=== PATIENT | female | born 1940 | race Caucasian/White ===

== ENCOUNTER → 2019-10-11 | Outpatient (CLI) | payer MEDICARE, OTHER ==
[~2019-10-11] MED LIST: ACYC-113 PO; BENZ-17 PO; CEFD300C37 PO; CIPR500S2 PO; CIPR500T87 PO; FLUC100T PO; LISI-167 PO; METF500T PO; OMNIPAQUE 350 MG/ML, 100ML BOTTLE ONE; VORI200T PO
== END | disposition home or self-care (01) ==
LOC: CFH 10:05
PROVIDERS: ATTEND Internal Medicine Infectious Disease
DX: J18.1 Lobar pneumonia, unspecified organism (principal)
CPT/HCPCS: 71260; Q9967

== ENCOUNTER → 2020-01-13 | Outpatient (CLI) | payer MEDICARE, OTHER ==
[~2020-01-13] MED LIST changes: -OMNIPAQUE 350 MG/ML, 100ML BOTTLE ONE; +OMNIPAQUE 350 MG/ML, 75ML BOTTLE ONE
== END | disposition home or self-care (01) ==
LOC: CFH 09:45
PROVIDERS: ATTEND Internal Medicine Infectious Disease
DX: J98.19 Other pulmonary collapse (principal); J18.1 Lobar pneumonia, unspecified organism
CPT/HCPCS: 71260; Q9967

== ENCOUNTER → 2020-01-27 | Outpatient (CLI) | payer MEDICARE, OTHER ==
[~2020-01-27] MED LIST changes: +MULT-717 PO; -OMNIPAQUE 350 MG/ML, 75ML BOTTLE ONE; +VORI200T2 PO
[2020-01-27 14:42] LABS: ALANINE AMINOTRANSFERASE 25 U/L (12-78); ALBUMIN 3.7 g/dL (3.4-5.0); ANION GAP 5 mmol/L (5-15); CALCIUM 9.4 mg/dL (8.5-10.1); CHLORIDE 109 mmol/L (98-107)
[2020-01-27 14:44] LABS: ALKALINE PHOSPHATASE 148 U/L (45-117); BILIRUBIN,TOTAL 0.3 mg/dL (0.2-1.0); CREATININE 0.71 mg/dL (0.55-1.02); TOTAL PROTEIN 7.6 g/dL (6.4-8.2)
== END | disposition home or self-care (01) ==
LOC: STAR 13:22
PROVIDERS: ATTEND Internal Medicine
DX: Z01.818 Encounter for other preprocedural examination (principal); R91.8 Other nonspecific abnormal finding of lung field; J98.19 Other pulmonary collapse; Z91.012 Allergy to eggs
CPT/HCPCS: 36415; 80053; 93005

== ENCOUNTER 2020-02-04 10:27 | Day surgery (SDC) | payer MEDICARE, OTHER ==
[~2020-02-04] VITALS: Ht 162.6 cm; Wt 57.6 kg
[~2020-02-04 10:27] MED LIST changes: +ACETAMINOPHEN 325 MG TABLET PO PRN; +EPHEDRINE 50 MG/ML, 1ML IVPush PRN; +FENTANYL PF 100 MCG/2ML IV PRN; +HYDROmorphone 1 MG/ML, 1ML INJ IVPush PRN; +LABETALOL 5MG/ML, 20ML IV PRN; +MEPERIDINE/PF 25MG/0.5ML IVPush PRN; +ONDANSETRON 2MG/ML, 2ML IVPush PRN; +OXYcodone 5 MG/5 ML ORAL.SOL UDC PO PRN; +PROMETHAZINE 25 MG/ML, 1ML IVPush PRN; +hydrALAzine 20 MG/ML, 1ML IV PRN
[2020-02-04] MEDS ORDERED: LACTATED RINGERS 1,000 ML IV SCH (11:02)
[2020-02-04 11:03] VITALS: BP 175/79
[2020-02-04] MEDS ORDERED: CHLORHEXIDINE 15 ML UDC MM ONE (11:30)
[2020-02-04] MEDS ORDERED: FENTANYL PF 100 MCG/2ML ONE ×2 (11:44→16:20)
[2020-02-04] MEDS ORDERED: PROPOFOL 10 MG/ML, 20ML ONE ×2 (11:45→16:25)
[2020-02-04] MEDS ORDERED: ONDANSETRON 2MG/ML, 2ML ONE (11:45)
[2020-02-04] MEDS ORDERED: SUCCINYLCHOLINE 20 MG/ML, 10ML ONE (11:45)
[2020-02-04] MEDS ORDERED: ROCURONIUM 10MG/ML,5ML ONE (11:45)
[2020-02-04] MEDS ORDERED: DEXAMETHASONE 4 MG/ML, 1ML ONE (11:45)
[2020-02-04] MEDS ORDERED: SUGAMMADEX 200 MG/2 ML IVPush ONE ×2 (13:04→16:12)
[2020-02-04] MEDS ORDERED: PROPOFOL 50 ML ONE ×2 (13:24→16:25)
[2020-02-04] MEDS ORDERED: EPHEDRINE 50 MG/ML, 1ML ONE (15:54)
[2020-02-04] MEDS ORDERED: PHENYLEPHRINE 10 MG/ML ONE (16:18)
== END 2020-02-04 16:45 | disposition home or self-care (01) ==
LOC: OUT 10:27
PROVIDERS: ATTEND Internal Medicine
DX: R59.1 Generalized enlarged lymph nodes (principal); Z11.59 Encounter for screening for other viral diseases; B44.1 Other pulmonary aspergillosis; C92.00 Acute myeloblastic leukemia, not having achieved remission; I10 Essential (primary) hypertension; D70.8 Other neutropenia; Z79.899 Other long term (current) drug therapy
CPT/HCPCS: 31652; 36415; 71045; 87635; 88172; 88173; 88177; 88305; J0330; J1100; J2370; J2405; J2704; J3010; J7120; 31622; 31624; 31629

== ENCOUNTER → 2020-08-02 | Outpatient (CLI) | payer MEDICARE, OTHER ==
[~2020-08-02] MED LIST changes: -ACETAMINOPHEN 325 MG TABLET PO PRN; -EPHEDRINE 50 MG/ML, 1ML IVPush PRN; -FENTANYL PF 100 MCG/2ML IV PRN; -HYDROmorphone 1 MG/ML, 1ML INJ IVPush PRN; -LABETALOL 5MG/ML, 20ML IV PRN; -MEPERIDINE/PF 25MG/0.5ML IVPush PRN; -ONDANSETRON 2MG/ML, 2ML IVPush PRN; -OXYcodone 5 MG/5 ML ORAL.SOL UDC PO PRN; -PROMETHAZINE 25 MG/ML, 1ML IVPush PRN; -hydrALAzine 20 MG/ML, 1ML IV PRN
== END | disposition home or self-care (01) ==
LOC: RAD 09:41
PROVIDERS: ATTEND Internal Medicine
DX: R91.8 Other nonspecific abnormal finding of lung field (principal); J98.19 Other pulmonary collapse
CPT/HCPCS: 71250

== ENCOUNTER 2021-01-25 17:23 | Emergency (ER) | payer MEDICARE, OTHER ==
[~2021-01-25] VITALS: Ht 165.1 cm; Wt 64.9 kg
[~2021-01-25 17:23] MED LIST changes: -ACYC-113 PO; +ACYC200C13 PO; -VORI200T2 PO; +VORI200T3 PO
--- NOTE | 2021-01-25 18:30 | NUR ---
PT C/O BLOODY URINE SINCE 01/11/21, DELAY IN ASSESSMENT, FOUND TO HAVE UTI. PT CURRENTLY ON MACROBID WITH FINAL DOSE TOMORROW AM. PT REPORTS URINE STILL SLIGHTLY BLOODY, THOUGH IMPROVED. PT LAST YEAR WAS IN HOSPITAL WITH SEPSIS AND PNEUMONIA. PLACED ON 10 MO OF MEDS THAT CAN HAVE STRONG EFFECT ON KIDNEYS. EDMD AT BEDSIDE. NAD NOTED AT THIS TIME. SPEAKS PLEASANTLY WITH STAFF.
[2021-01-25] MEDS ORDERED: SODIUM CHLORIDE FLUSH 10ML SYR IVF ONE (19:00)
[2021-01-25 19:14] LABS: ALANINE AMINOTRANSFERASE 30 U/L (12-78); ALBUMIN 4.1 g/dL (3.4-5.0); ANION GAP 6 mmol/L (5-15); CALCIUM 9.2 mg/dL (8.5-10.1); CHLORIDE 106 mmol/L (98-107); CREATININE 1.05 mg/dL (0.55-1.02)
[2021-01-25 19:16] LABS: ALKALINE PHOSPHATASE 102 U/L (45-117); BILIRUBIN,TOTAL 0.2 mg/dL (0.2-1.0); TOTAL PROTEIN 7.7 g/dL (6.4-8.2)
[2021-01-25 19:19] LABS: MICROSCOPIC INDICATED
[2021-01-25 19:25] LABS: MEAN CORPUSCULAR HEMOGLOBIN 34.6 pg (27.0-34.8); MEAN CORPUSCULAR HGB CONC 34.4 g/dL (32.4-35.8); MEAN PLATELET VOLUME 7.9 fL (7.4-10.4); RED BLOOD COUNT 3.32 x10^6/uL (3.82-5.3)
[2021-01-25 19:46] LABS: PLATELET COUNT 54 x10^3/uL (130-400)
--- NOTE | 2021-01-25 19:50 | NUR ---
REPORT TO MARKOS SANTOYO. PT SITTING UP RESPIRATIONS EVEN AND UNLABORED ON RA. NAD NOTED AT THIS TIME.
[2021-01-25 20:02] LABS: LYMPH#(MANUAL) 1.55 x10^3/uL (1-3.4); LYMPHS% (MANUAL) 74 % (22-44); MONOS#(MANUAL) 0.04 x10^3/uL (0.3-2.7); MONOS% (MANUAL) 2 % (2-9); SEGS% (MANUAL) 24 % (42-75)
[2021-01-25 20:04] LABS: ANISOCYTOSIS 1+
[2021-01-25 20:05] LABS: <PLATELET ESTIMATE> DECREASED; <PLT MORPHOLOGY> NORMAL PLT MORPH
--- NOTE | 2021-01-25 20:21 | NUR ---
ASSUMED CARE FROM MARKOS WATKINS. PT RESTING IN [facility], MONITORING IN PLACE, MARTAN AT THIS TIME, FAMILY AT BEDSIDE, GERDA.
[2021-01-25 20:31] VITALS: BP 147/64
== END 2021-01-25 21:46 | disposition home or self-care (01) ==
LOC: ED 17:53
DX: R31.0 Gross hematuria (principal); D70.9 Neutropenia, unspecified; R00.0 Tachycardia, unspecified
CPT/HCPCS: 36415; 80053; 81001; 83605; 85025; 87086; 99283

== ENCOUNTER → 2021-01-29 | Outpatient (CLI) | payer MEDICARE, OTHER | END | disposition home or self-care (01) | LOC: CFH 09:48 | PROVIDERS: ATTEND Family Medicine | DX: R31.9 Hematuria, unspecified (principal) | CPT/HCPCS: 76770 ==

== ENCOUNTER → 2021-02-19 | Outpatient (CLI) | payer MEDICARE, OTHER ==
[~2021-02-19] MED LIST changes: +OMNIPAQUE 350 MG/ML, 150 ML BOTTLE ONE
== END | disposition home or self-care (01) ==
LOC: CFH 14:19
PROVIDERS: ATTEND Internal Medicine
DX: K57.30 Diverticulosis of large intestine without perforation or abscess without bleeding (principal); I25.10 Atherosclerotic heart disease of native coronary artery without angina pectoris; R91.8 Other nonspecific abnormal finding of lung field; R31.0 Gross hematuria; J98.11 Atelectasis; I70.0 Atherosclerosis of aorta; M51.36 Other intervertebral disc degeneration, lumbar region
CPT/HCPCS: 71250; 74178; Q9967

== ENCOUNTER 2021-03-09 11:07 | Outpatient (CLI) | payer MEDICARE, OTHER ==
[~2021-03-09 11:07] MED LIST changes: -OMNIPAQUE 350 MG/ML, 150 ML BOTTLE ONE
[2021-03-09 12:15] LABS: MEAN CORPUSCULAR HEMOGLOBIN 36.4 pg (27.0-34.8); MEAN CORPUSCULAR HGB CONC 34.3 g/dL (32.4-35.8); MEAN PLATELET VOLUME 7.7 fL (7.4-10.4); RED CELL DISTRIBUTION WIDTH 16.6 % (9.6-15.2)
[2021-03-09 12:26] LABS: ALBUMIN 3.9 g/dL (3.4-5.0); ANION GAP 8 mmol/L (5-15); CALCIUM 9.2 mg/dL (8.5-10.1); CHLORIDE 105 mmol/L (98-107)
[2021-03-09 12:29] LABS: ALANINE AMINOTRANSFERASE 23 U/L (12-78); ALKALINE PHOSPHATASE 91 U/L (45-117); BILIRUBIN,TOTAL 0.6 mg/dL (0.2-1.0); CREATININE 0.75 mg/dL (0.55-1.02); TOTAL PROTEIN 7.9 g/dL (6.4-8.2)
[2021-03-09 12:57] LABS: PLATELET COUNT 17 x10^3/uL (130-400)
[2021-03-09 13:05] LABS: BLASTS # (MANUAL) 0.17 x10^3/uL (0-0); EOS#(MANUAL) 0.02 x10^3/uL (0.0-0.4); EOS% (MANUAL) 1 % (1-7); LYMPH#(MANUAL) 1.44 x10^3/uL (1-3.4); LYMPHS% (MANUAL) 76 % (22-44); MONOS#(MANUAL) 0.04 x10^3/uL (0.3-2.7); MONOS% (MANUAL) 2 % (2-9); REACTIVE LYMPHS # (MANUAL) 0.02 x10^3/uL (0-0); REACTIVE LYMPHS % (MANUAL) 1 % (0-0); SEG#(MANUAL) 0.21 x10^3/uL (1.8-6.8); SEGS% (MANUAL) 11 % (42-75)
[2021-03-09 13:07] LABS: ANISOCYTOSIS 1+
[2021-03-09 13:08] LABS: <PLATELET ESTIMATE> DECREASED; <PLT MORPHOLOGY> NORMAL PLT MORPH; BLASTS % (MANUAL) 9 % (0-0)
[2021-03-09] MEDS ORDERED: METF500T17 PO (14:12)
== END 2021-03-09 23:59 | disposition home or self-care (01) ==
LOC: STAR 11:07
PROVIDERS: ATTEND Urology
DX: Z01.818 Encounter for other preprocedural examination (principal); N32.89 Other specified disorders of bladder
CPT/HCPCS: 36415; 80053; 85025; 93005

== ENCOUNTER 2021-03-24 06:38 | Emergency (ER) | payer MEDICARE, OTHER ==
[~2021-03-24] VITALS: Ht 165.1 cm; Wt 64.4 kg
[~2021-03-24 06:38] MED LIST changes: +METF500T17 PO
--- NOTE | 2021-03-24 07:47 | NUR ---
PT TO ROOM FROM [facility]. NAD.
--- NOTE | 2021-03-24 07:49 | NUR ---
PATIENT ARRIVES FROM DR MOSS WHO TOLD HER TO COME HAVE PLATELETS INFUSED FOR LOW COUNT, SHE HAD THE BLOOD DRAW DONE YESTERDAY. SHE FEELS SOME WEAKNESS BUT AOX4, ABLE TO WALK OK
[2021-03-24 09:14] LABS: MEAN CORPUSCULAR HEMOGLOBIN 37.4 pg (27.0-34.8); MEAN CORPUSCULAR HGB CONC 33.8 g/dL (32.4-35.8); MEAN PLATELET VOLUME 8.1 fL (7.4-10.4); RED BLOOD COUNT 2.35 x10^6/uL (3.82-5.3); RED CELL DISTRIBUTION WIDTH 17.4 % (9.6-15.2)
[2021-03-24 09:22] LABS: ALANINE AMINOTRANSFERASE 24 U/L (12-78); ALBUMIN 3.9 g/dL (3.4-5.0); ANION GAP 6 mmol/L (5-15); CALCIUM 9.8 mg/dL (8.5-10.1); CHLORIDE 106 mmol/L (98-107); CREATININE 0.85 mg/dL (0.55-1.02)
[2021-03-24 09:24] LABS: ALKALINE PHOSPHATASE 112 U/L (45-117); BILIRUBIN,TOTAL 0.4 mg/dL (0.2-1.0); TOTAL PROTEIN 7.9 g/dL (6.4-8.2)
--- NOTE | 2021-03-24 09:35 | NUR ---
waiting on lab work. in bed watching tv, vss.
--- NOTE | 2021-03-24 10:10 | NUR ---
HELPED TO BATHROOM. NO COMPLICATIONS. TREADED SOCKS. PATIENT IN BED.
[2021-03-24 10:14] LABS: PLATELET COUNT 17 x10^3/uL (130-400)
[2021-03-24 10:20] LABS: BLASTS # (MANUAL) 0.23 x10^3/uL (0-0); EOS#(MANUAL) 0.06 x10^3/uL (0.0-0.4); EOS% (MANUAL) 2 % (1-7); LYMPH#(MANUAL) 2.49 x10^3/uL (1-3.4); LYMPHS% (MANUAL) 86 % (22-44); SEG#(MANUAL) 0.12 x10^3/uL (1.8-6.8); SEGS% (MANUAL) 4 % (42-75)
[2021-03-24 10:24] LABS: ANISOCYTOSIS 1+
[2021-03-24 10:25] LABS: <PLATELET ESTIMATE> DECREASED; <PLT MORPHOLOGY> NORMAL PLT MORPH
--- NOTE | 2021-03-24 10:35 | NUR ---
CRITICAL LABS ANC NEUTS AND PLATELETS RELAYED TO . CONSENTED FOR BLOOD
[2021-03-24 10:36] LABS: BLASTS % (MANUAL) 8 % (0-0)
--- NOTE | 2021-03-24 11:37 | NUR ---
in conversation earlier with blood bank (and verified by MD Merritt) it was determined patient needs irradated platelets, so there aren't any in house. they will call when they become available.
[2021-03-24 12:34] VITALS: BP 138/38
[2021-03-24 12:46] VITALS: BP 141/43
[2021-03-24 12:51] VITALS: BP 142/44
[2021-03-24 12:57] VITALS: BP 141/44
--- NOTE | 2021-03-24 13:13 | NUR ---
DISCHARGE INFOMRATION REVIEWED WITH PATIENT, KNOWS TO FOLLOW UP WITH ONCOLOGY
== END 2021-03-24 13:19 | disposition home or self-care (01) ==
LOC: ED 10:43
DX: D69.6 Thrombocytopenia, unspecified (principal); D61.818 Other pancytopenia; Z85.51 Personal history of malignant neoplasm of bladder
CPT/HCPCS: 36415; 36430; 80053; 85025; 86850; 86900; 99285; P9037